=== PATIENT | female | born 1955 | race Caucasian/White ===

== ENCOUNTER 2017-09-08 12:36 | Emergency (ER) | payer MEDICARE ==
[~2017-09-08] VITALS: Ht 160 cm; Wt 59.9 kg
[2017-09-08 12:42] VITALS: BP 144/73; PULSE 61; RESP 16; TEMP 98.3; O2SAT 98
[2017-09-08] MEDS ORDERED: TOPI200 PO (13:20)
[2017-09-08] MEDS ORDERED: TRAM50TA PO (13:21)
[2017-09-08] MEDS ORDERED: SODIUM CHLORIDE 0.9% FLUSH 10 ML FLUSH IVF PRN (13:30)
[2017-09-08] MEDS ORDERED: ASPIRIN 81 MG CHEW TAB PO ONE (13:30)
[2017-09-08 13:31] VITALS: O2SAT 99
--- NOTE | 2017-09-08 13:42 | PD ---
HPI . Chest pain Chief Complaint: Chest Pain Time Seen by Provider: 13:18 Travel History International Travel<30 days: No Contact w/Intl Traveler<30days: No Traveled to known affect area: No History of Present Illness HPI This patient presents with a chief complaint of chest pain. She states that she has not been feeling well for about a month. She reports unusual fatigue. Yesterday, she had a bad headache and dizziness. She states that her head felt like she had taken some bad drugs in the 60s. She states that her sister. Her blood pressure and found to be high. After that, she noticed a very mild discomfort in the left lateral chest near the axilla. She describes the pain as feeling like a pulled muscle. She states that her breath feels shallow. She denies any associated nausea or vomiting. She denies any diaphoresis. She states that she went to her primary care doctor's office this morning because of the elevated blood pressure, hot sensation in her head and fatigue for the past month. She states that her doctor did an EKG and saw something on the EKG that was abnormal. He subsequently sent her to us for further evaluation. The patient has not noticed any exacerbating or relieving factors. She states her symptoms are extremely mild. PFSH Past Medical History Narrative Medical Migraine headaches Hx Anticoagulant Therapy: No Cardiovascular Problems: Yes (HTN) Diabetes: No Gastrointestinal Disorders: Yes (was treated for Hep C) Tetanus Vaccination: < 5 Years Influenza Vaccination: No ?: Not Past Surgical History Hysterectomy: Yes Social History Alcohol Use: No Tobacco Use: Yes (1 ppd) Substance Use: No Allergies-Medications (Allergen,Severity, Reaction): Coded Allergies: codeine (Verified Allergy, Severe, 09/08/17) Reported Meds & Prescriptions Reported Meds & Active Scripts Active Reported Tramadol (Tramadol HCl) 50 Mg Tab 50 Mg PO Q6H PRN Topamax (Topiramate) 200 Mg Tab 200 Mg PO DAILY Review of Systems Except as stated in HPI: all other systems reviewed are Neg Eyes: No: Blurred Vision HENT: Positive: Headaches, Lightheadedness Cardiovascular: Positive: Chest Pain or Discomfort Respiratory: Positive: Shortness of Breath Physical Exam Narrative GENERAL: Healthy-appearing 62-year-old woman who is in no acute distress. SKIN: warm/dry. HEAD: Normocephalic. Atraumatic. EYES: Pupils equal and round. No scleral icterus. No injection or drainage. ENT: No nasal bleeding or discharge. Mucous membranes pink and moist. NECK: Trachea midline. Full range of motion without pain.. CARDIOVASCULAR: Regular rate and rhythm. Heart sounds are normal. RESPIRATORY: No accessory muscle use. Clear to auscultation. Breath sounds equal bilaterally. GASTROINTESTINAL: Abdomen soft. Nontender. Bowel sounds present. Nondistended. MUSCULOSKELETAL: No obvious deformities. NEUROLOGICAL: Awake and alert. No obvious cranial nerve deficits. Motor grossly within normal limits. Normal speech. Mvzurm-dref-vgarvs exam is intact. PSYCHIATRIC: Appropriate mood and affect; insight and judgment normal. Data Data Last Documented VS Vital Signs Date Time Temp Pulse Resp B/P (MAP) Pulse Ox O2 Delivery O2 Flow Rate FiO2 09/08/17 13:31 99 Room Air 09/08/17 12:42 98.3 61 16 144/73 (96) Orders Orders Basic Metabolic Panel (Bmp) (09/08/17 13:19) Ckmb (Isoenzyme) Profile (09/08/17 13:19) Complete Blood Count With Diff (09/08/17 13:19) Magnesium (Mg) (09/08/17 13:19) Prothrombin Time / Inr (Pt) (09/08/17 13:19) Act Partial Throm Time (Ptt) (09/08/17 13:19) Troponin I (09/08/17 13:19) Chest, Single Ap (09/08/17 13:19) Ecg Monitoring (09/08/17 13:19) Iv Access Insert/Monitor (09/08/17 13:19) Oximetry (09/08/17 13:19) Aspirin Chew (Aspirin Chew) (09/08/17 13:30) Sodium Chloride 0.9% Flush (Ns Flush) (09/08/17 13:30) Lorazepam Inj (Ativan Inj) (09/08/17 13:45) Labs Laboratory Tests Test 09/08/17 13:00 White Blood Count 5.3 TH/MM3 Red Blood Count 5.02 MIL/MM3 Hemoglobin 14.9 GM/DL Hematocrit 45.8 % Mean Corpuscular Volume 91.2 FL Mean Corpuscular Hemoglobin 29.6 PG Mean Corpuscular Hemoglobin Concent 32.5 % Red Cell Distribution Width 12.7 % Platelet Count 231 TH/MM3 Mean Platelet Volume 8.0 FL Neutrophils (%) (Auto) 49.2 % Lymphocytes (%) (Auto) 41.6 % Monocytes (%) (Auto) 5.8 % Eosinophils (%) (Auto) 2.7 % Basophils (%) (Auto) 0.7 % Neutrophils # (Auto) 2.7 TH/MM3 Lymphocytes # (Auto) 2.2 TH/MM3 Monocytes # (Auto) 0.3 TH/MM3 Eosinophils # (Auto) 0.1 TH/MM3 Basophils # (Auto) 0.0 TH/MM3 CBC Comment DIFF FINAL Differential Comment Prothrombin Time 10.4 SEC Prothromb Time International Ratio 0.9 RATIO Activated Partial Thromboplast Time 28.2 SEC Blood Urea Nitrogen 16 MG/DL Creatinine 1.00 MG/DL Random Glucose 80 MG/DL Calcium Level 8.5 MG/DL Magnesium Level 2.4 MG/DL Sodium Level 144 MEQ/L Potassium Level 4.0 MEQ/L Chloride Level 113 MEQ/L Carbon Dioxide Level 22.9 MEQ/L Anion Gap 8 MEQ/L Estimat Glomerular Filtration Rate 56 ML/MIN Total Creatine Kinase 66 U/L Troponin I LESS THAN 0.02 NG/ML MDM Medical Decision Making Medical Screen Exam Complete: Yes Emergency Medical Condition: Yes Interpretation(s) EKG shows sinus bradycardia. She is having occasional PACs which are preceded by an inverted P-wave. There are no acute ischemic changes. Differential Diagnosis Differential diagnosis of chest pain includes but is not limited to musculoskeletal pain, pulmonary embolism, acute coronary syndrome, pneumonia, pleurisy Narrative Course This patient presents with very mild left lateral chest pain. She noticed it yesterday after her sister took her blood pressure because of bad headache. The blood pressure was found to be elevated. She subsequently developed a discomfort in her chest. She saw her primary care provider earlier today who referred her to us for further evaluation. CBC & BMP Diagram 09/08/17 13:00 Calcium Level 8.5, Magnesium Level 2.4 trop < 0.02 CXR to my interpretation is negative for pulmonary edema, infiltrate, pneumothorax Disposition has been discussed with the patient. I have given her the option of admission to the chest pain center. I have told her that I have a low index of suspicion in her case. Her symptoms started yesterday and her troponin is normal. Her symptoms are not typical of ACS. She prefers to go home. Diagnosis Primary Impression: Atypical chest pain Additional Impressions: Headache Qualified Codes: R51 - Headache Elevated blood pressure reading Patient Instructions: Acute Headache (DC), Chest Pain (DC), General Instructions Disposition: 01 DISCHARGE HOME Condition: Stable China De La Garza MD Sep 08, 2017 13:42
[2017-09-08] MEDS ORDERED: LORazepam 2 MG/ML VIAL IV PUSH PRN (13:45)
[2017-09-08 13:50] LABS: CHLORIDE 113 MEQ/L (98-107); SODIUM (NA) 144 MEQ/L (136-145)
[2017-09-08 13:54] LABS: AUTOMATED NEUTROPHIL # 2.7 TH/MM3 (1.8-7.7); BASOPHIL % 0.7 % (0.0-2.0); CALCIUM 8.5 MG/DL (8.5-10.1); EOSINOPHIL # 0.1 TH/MM3 (0-0.4); EOSINOPHIL % 2.7 % (0.0-4.0); HEMATOCRIT 45.8 % (35.0-46.0); HEMOGLOBIN 14.9 GM/DL (11.6-15.3); LYMPH % 41.6 % (9.0-44.0); LYMPHOCYTE # 2.2 TH/MM3 (1.0-4.8); MEAN CELL VOLUME 91.2 FL (80.0-100.0); MEAN CORPUSCULAR HEMOGLOBIN 29.6 PG (27.0-34.0); MEAN CORPUSCULAR HGB CONC 32.5 % (32.0-36.0); MONO % 5.8 % (0.0-8.0); MONOCYTE # 0.3 TH/MM3 (0-0.9); NEUT % 49.2 % (16.0-70.0); PLATELET COUNT 231 TH/MM3 (150-450); RED BLOOD COUNT 5.02 MIL/MM3 (4.00-5.30); RED CELL DISTRIBUTION WIDTH 12.7 % (11.6-17.2); WHITE BLOOD COUNT 5.3 TH/MM3 (4.0-11.0)
[2017-09-08 13:55] LABS: BICARBONATE 22.9 MEQ/L (21.0-32.0); BLOOD UREA NITROGEN 16 MG/DL (7-18); GLUCOSE,RANDOM 80 MG/DL (74-106); MAGNESIUM 2.4 MG/DL (1.5-2.5)
[2017-09-08 13:56] LABS: INTERNATIONAL NORMALIZED RATIO 0.9 RATIO; PROTHROMBIN TIME - PATIENT 10.4 SEC (9.8-11.6)
[2017-09-08 13:58] LABS: GLOMERULAR FILTRATION RATE 56 ML/MIN (>89)
[2017-09-08 14:03] LABS: TROPONIN I LESS THAN 0.02 NG/ML (0.02-0.05)
[2017-09-08 14:40] VITALS: BP 117/79; PULSE 52; RESP 18; O2SAT 100
--- NOTE | 2017-09-08 14:49 | RADRPT ---
EXAM DATE/TIME: 09/08/2017 13:47 [facility] COMPARISON: No previous studies available for comparison. INDICATIONS : Chest pain. MEDICAL HISTORY : None. SURGICAL HISTORY : None. ENCOUNTER: Initial ACUITY: 1 day PAIN SCORE: 2/10 LOCATION: Left chest FINDINGS: A single view of the chest demonstrates the lungs to be symmetrically aerated without evidence of mas s, infiltrate or effusion. The cardiomediastinal contours are unremarkable. Osseous structures are intact. CONCLUSION: The lungs are clear. Mookie Clark MD on September 08, 2017 at 14:47 Board Certified Radiologist. This report was verified electronically.
--- NOTE | 2017-09-09 14:52 | EKG ---
Date Performed: 09/08/2017 Time Performed: 12:52:35 PTAGE: 62 years EKG: SINUS BRADYCARDIA WITH OCCASIONAL SUPRAVENTRICULAR PREMATURE COMPLEXES LOW QRS VOLTAGE IN E XTREMITY LEADS BORDERLINE ECG INTERPRETATION BASED ON A DEFAULT AGE OF 39 YEARS NO PREVIOUS TRACING DOCTOR: Laz Booker Interpretating Date/Time 09/09/2017 14:51:15
== END 2017-09-08 15:22 | disposition home or self-care (01) ==
LOC: PHED 12:36
DX: R07.89 Other chest pain (principal); R51 Headache; I10 Essential (primary) hypertension; R94.31 Abnormal electrocardiogram [ECG] [EKG]; F17.210 Nicotine dependence, cigarettes, uncomplicated
CPT/HCPCS: 71010; 80048; 82550; 83735; 84484; 85025; 85610; 85730; 93005; 96374; 99285; J2060